=== PATIENT | female | born 1955 | race Caucasian/White ===

== ENCOUNTER → 2021-07-09 | Outpatient (CLI) | payer MEDICARE, MEDICAID ==
--- NOTE | 2021-07-09 16:49 | DEXAMM ---
INDICATION: ENC FOR SCREENING FOR OSTEOPOROSIS. COMPARISON: None. TECHNIQUE: Bone density was measured using dual-energy x-ray absorptiometry (DEXA). FINDINGS: AP SPINE L1-L4 BMD 1.206 g/cm2 Young Adult T-Score 0.1 Age Matched Z-Score 1.7. LT FEMUR, TOTAL BMD 1.018 g/cm2 Young Adult T-Score 0.1 Age Matched Z-Score 1.3. LT NECK BMD 0.844 g/cm2 Young Adult T-Score -1.4 Age Matched Z-Score 0.1. RT FEMUR, TOTAL BMD 0.957 g/cm2 Young Adult T-Score -0.4 Age Matched Z-Score 0.8. RT NECK BMD 0.732 g/cm2 Young Adult T-Score -2.2 Age Matched Z-Score -0.7. IMPRESSION: There is normal bone density of the spine. There is low bone density of the left hip. There is low bone density of the right hip. FOLLOW-UP: Recommendation for the next bone density exam: 2 years. <Electronically signed by Victorino Pagan > 07/09/21 0061
--- NOTE | 2021-07-22 15:25 | REPMRS ---
Patient History The patient states she has not had a clinical breast exam in over a year. Patient is postmenopausal. No known family history of cancer. No Hormone Replacement Therapy Tomosynthesis is performed. Volpara breast density is a. [facility] lifetime risk of breast cancer 2.7%. Pfizer vaccines 10/2020 right arm. 11/25/20 right arm. 06/2021 right arm. Patient states no breast complaints today. Patient has signed MRS History Sheet. Digital Woman Screen Mammo: July 09, 2021 - Exam #: [id number] Bilateral CC and MLO view(s) were taken. Technologist: Nga Antonio, FINDINGS: There are scattered fibroglandular densities. There has been no change in the appearance of the mammogram from the prior studies. There is a mild amount of residual fibroglandular tissue which is fairly symmetric. There is no interval development of dominant mass, architectural distortion, or clustered microcalcification suggestive of malignancy. Assessment: BI-RADS/ACR category 1 mammogram. Negative Mammogram. Recommendation Routine screening mammogram in 1 year (for women over age 40). This mammogram was interpreted with the aid of an FDA-approved computer-aided dectection system. Electronically Signed By: Victorino Pagan MD 07/22/21 [id number]
== END ==
LOC: M WHC 13:45
PROVIDERS: ATTEND Registered Nurse
DX: Z12.31 Encounter for screening mammogram for malignant neoplasm of breast (principal); Z13.820 Encounter for screening for osteoporosis; M85.89 Other specified disorders of bone density and structure, multiple sites; Z78.0 Asymptomatic menopausal state

== ENCOUNTER → 2022-01-28 | Outpatient (REF) | payer MEDICARE, MEDICAID ==
[2022-01-28 16:11] LABS: HEMOGLOBIN A1c 5.9 %
== END ==
LOC: M LAB REF 15:33 → M LABDRAWC 15:33
PROVIDERS: ATTEND Surgery
DX: Z86.39 Personal history of other endocrine, nutritional and metabolic disease (principal)

== ENCOUNTER → 2023-07-10 | Outpatient (CLI) | payer MEDICARE, MEDICAID ==
[~2023-07-10] MED LIST: MECL-209 PO; ONDA4TAB6 PO
== END ==
LOC: M WHC 09:35
PROVIDERS: ATTEND Registered Nurse
DX: Z12.31 Encounter for screening mammogram for malignant neoplasm of breast (principal); Z13.820 Encounter for screening for osteoporosis; M85.851 Other specified disorders of bone density and structure, right thigh

== ENCOUNTER → 2023-10-03 | Outpatient (REF) | payer MEDICARE, MEDICAID | LOC: M LAB REF 17:15 | PROVIDERS: ATTEND Internal Medicine Gastroenterology | DX: A04.0 Enteropathogenic Escherichia coli infection (principal) ==

== ENCOUNTER → 2024-08-20 | Outpatient (CLI) | payer MEDICARE ==
[~2024-08-20] MED LIST changes: +ONDA-282 PO; -ONDA4TAB6 PO
== END ==
LOC: M RAD 15:12
PROVIDERS: ATTEND Orthopaedic Surgery Adult Reconstructive Orthopaedic Surgery
DX: M79.606 Pain in leg, unspecified (principal); M79.89 Other specified soft tissue disorders

== ENCOUNTER → 2025-08-29 | Outpatient (REF) | payer MEDICARE ==
[2025-08-29 18:10] LABS: BASO # 0.1 10^3/uL (0.0-0.2); BASO % 0.8 % (0.0-1.0); EOS # 0.6 10^3/uL (0.0-0.5); EOS % 9.3 % (0.0-3.0); LYMPH # 1.7 10^3/uL (1.5-5.0); LYMPH % 28.8 % (24.0-44.0); MONO # 0.7 10^3/uL (0.0-0.8); MONO % 10.8 % (2.0-8.0); NEUTROPHILS # 3.0 10^3/uL (1.5-8.5); NEUTROPHILS % 50.0 % (36.0-66.0); PLATELET COUNT, AUTOMATED 278 10^3/uL (150-450)
[2025-08-29 18:37] LABS: ALT/SGPT 43.0 U/L (7.0-40); AST/SGOT 42.0 U/L (<34); CALCIUM LEVEL 9.4 MG/DL (8.3-10.6); CARBON DIOXIDE LEVEL 29.0 MMOL/L (20-31); CHLORIDE LEVEL 100.0 MMOL/L (98-107); CHOLESTEROL LEVEL 219.0 MG/DL (<200); CHOLESTEROL RISK RATIO 3.32 (<5); CREATININE FOR GFR 0.73 MG/DL (0.55-1.30); GLOMERULAR FILTRATION RATE 88.4 (>39); LDL CHOLESTEROL 122.0 MG/DL (<100); NON-HDL-C 153.2 MG/DL; POTASSIUM SERUM 4.3 MMOL/L (3.5-5.1); SODIUM LEVEL 140.0 MMOL/L (136-145); TRIGLYCERIDES LEVEL 156.0 MG/DL (<150)
[2025-08-29 18:53] LABS: ESTIMATED AVERAGE GLUCOSE 120.0 MG/DL (60-110)
== END ==
LOC: M LABDRAWC 17:16
PROVIDERS: ATTEND Registered Nurse
DX: E11.9 Type 2 diabetes mellitus without complications (principal); E78.5 Hyperlipidemia, unspecified; I10 Essential (primary) hypertension; F41.9 Anxiety disorder, unspecified